=== PATIENT | female | born 1970 | race Asian ===

== ENCOUNTER 2017-04-08 11:50 | Emergency (ER) | payer OTHER ==
[~2017-04-08] VITALS: Ht 165.1 cm; Wt 65.0 kg
[~2017-04-08 11:50] MED LIST: AMLO-147 PO; ASPI81TA3 PO; CHOL100062 PO; CIPR500T4 PO; ERGO500014 PO; GABA100C14 PO; GLIP5TAB13 PO; HYDR-762 PO; LISI10TA2 PO; METF500T4 PO; METO-448 PO; METO25TA4 PO; OMEP40CA6 PO
[2017-04-08 11:53] VITALS: Ht 165.1 cm; Wt 65.0 kg
--- NOTE | 2017-04-08 12:33 | ERD ---
ER Documentation Chief Complaint Date/Time DATE: 04/08/17 TIME: 12:22 Chief Complaint Complains of urine problem HPI 46-year-old female who presented emergency department for urinary symptoms. Patient stated that she has painful urination, fever of 100.0 at home, bilateral flank pain (right greater than the left). Stated that she was diagnosed with kidney infection about a year ago and was advised by her primary care physician never to do fasting. But patient stated that she just fasted for about 17 hours and after this she developed her symptoms. Denies headache, loss of consciousness, dizziness, blurry vision, changes in vision, photophobia, facial pain, ear pain, throat pain, difficulty swallowing, neck pain, shoulder pain, chest pain, cough, hemoptysis, abdominal pain, loss of appetite, nausea, vomiting, hematochezia, diarrhea, constipation, , the possibility of being , bladder and bowel incontinences, extremity weakness, extremity tenderness, numbness or tingling sensation, difficulty walking, recent travel, recent exposure to illness, recent antibiotic use in the last 3 months. Allergy: No known drug allergies. PMH: Diabetes, hypertension. Family medical history: Denies family history of cardiac before the age of 50. AO LMP: April 01, 2017. Medications: Glipizide, Tylenol, metoprolol, Pepcid, lisinopril, metformin. Surgery: Denies. Primary Social History: Not working at this time. Denies smoking, use of alcohol, use of illegal drugs. ROS All systems reviewed and are negative except as per history of present illness. Medications Home Meds Active Scripts Phenazopyridine Hcl* (Pyridium*) 200 Mg Tab, 200 MG PO TID Y for URINARY PAIN, # 6 TAB Prov:COLLEEN HINKLE F 04/08/17 Ondansetron (Ondansetron Odt) 4 Mg Tab.rapdis, 4 MG PO Q6H Y for NAUSEA AND/OR VOMITING, #15 TAB Prov:PASILABANEVANGELISTAR F 04/08/17 Acetaminophen* (Tylophen*) 500 Mg Capsule, 1 CAP PO Q6H Y for PAIN AND OR ELEVATED TEMP, #20 CAP Prov:PASILABAN,EVANGELISTAR F 04/08/17 Ciprofloxacin Hcl* (Ciprofloxacin Hcl*) 500 Mg Tablet, 500 MG PO BID, #14 TAB Prov:ESTEBAN LANDRY V. CRIBBER 06/28/16 Amlodipine Besylate* (Amlodipine Besylate*) 10 Mg Tablet, 10 MG PO DAILY, #30 TAB Prov:ESTEBAN LANDRY VVannesa CRIBBER 06/24/16 Hydrocodone Bit-Acetaminophen* ([place]*) 10-325 Mg Tablet, 1 TAB PO Q6 Y for PAIN , #20 TAB Prov:DALIA CARTER 06/20/16 Reported Medications Glipizide* (Glipizide*) 5 Mg Tablet, 5 MG PO AC BREAKFAST DINNER, TAB 01/31/17 Metoprolol Tartrate* (Lopressor*) 25 Mg Tab, 25 MG PO BID, #60 TAB 01/31/17 Gabapentin* (Gabapentin*) 100 Mg Capsule, 100 MG PO TID, #90 CAP 01/31/17 Lisinopril* (Lisinopril*) 10 Mg Tablet, 10 MG PO DAILY, #30 TAB 01/31/17 Cholecalciferol* (Vitamin D3*) 1,000 Unit Tablet, 1000 UNIT PO DAILY, TAB 01/31/17 Omeprazole* (Omeprazole*) 40 Mg Capsule.dr, 40 MG PO DAILY, #30 CAP 06/20/16 Glipizide* (Glipizide*) 5 Mg Tablet, 5 MG PO BID, TAB 06/20/16 Gabapentin* (Gabapentin*) 100 Mg Capsule, 100 MG PO TID, #90 CAP 06/20/16 Aspirin* (Aspirin* Chew) 81 Mg Tab.chew, 81 MG PO DAILY, TAB.CHEW 06/20/16 Metoprolol Tartrate* (Lopressor*) 25 Mg Tablet, 25 MG PO BID, #60 TAB 06/20/16 Metformin* (Glucophage*) 500 Mg Tab, 500 MG PO WITH LUNCH DINNER, #60 TAB 06/20/16 Ergocalciferol* (Drisdol* (Vitamin D2)) 50,000 Unit Capsule, 06706 UNIT PO Q7D, CAP 06/20/16 Allergies Allergies: Coded Allergies: No Known Allergy (Unverified , 06/25/16) PMhx/Soc History of Surgery: No Anesthesia Reaction: No Hx Neurological Disorder: No Hx Respiratory Disorders: No Hx Cardiac Disorders: Yes (HTN) Hx Psychiatric Problems: No Hx Miscellaneous Medical Probl: Yes (DM) Hx Alcohol Use: No Hx Substance Use: No Hx Tobacco Use: No Smoking Status: Never smoker Physical Exam Vitals Vital Signs Date Time Temp Pulse Resp B/P Pulse Ox O2 Delivery O2 Flow Rate FiO2 04/08/17 11:53 98.4 86 20 172/89 97 Physical Exam CONSTITUTIONAL: Well-appearing; well-nourished; in no apparent distress. HEAD: Normocephalic; atraumatic. EYES: Conjunctiva clear, sclera non-icteric, EOM intact. PERRL Ears: Hearing intact. EACs clear, TMs non-bulging, non-inflamed, translucent & mobile, ossicles normal appearance, No obstructions, no erythema, no discharges Nose: No obstructions. No polyps. No external lesions. Mucosa non-inflamed. No external lesions, septum and turbinates normal. No rhinorrhea. No discharges. Frontal sinus is non-tender to palpation. Maxillary sinus is non-tender to palpation. MOUTH: Moist mucous membranes, no lesion, no obstructions, no vesicles, no thrush, patent airway Throat: Uvula in midline. Right tonsil is +1 with no erythema, no exudate. Left tonsil is +1 with no erythema, no exudate. Tolerating secretions well. Good gag reflex. Patent airway. Neck: Supple, without lesions, bruits, or adenopathy. No mass. Thyroid non- enlarged and non-tender to palpation. CHEST: Symmetrical chest. Respirations even and not labored. No retractions noted. CARDIOVASCULAR: Normal S1, S2. RRR. No murmurs, gallops. RESPIRATORY: Normal chest excursion with respiration; breath sounds clear and equal bilaterally; no wheezes, rhonchi, or rales. Breathing even and unlabored. Speaking in clear, full, and complete sentences w/ ease. ABDOMEN: Normal bowel sounds normal. Soft, round, non-distended, non-guarding, no tenderness, no rebound, no organomegaly, no masses, no pulsating abdominal mass. No hernia. No peritoneal signs. : Bilateral CVA tenderness, right greater than the left. BACK: Symmetrical shoulder. Spine is midline without deformity, tenderness. No evidence of trauma or deformity. PELVIS: Stable pelvis. No evidence of trauma or deformity. MUSCULOSKELETAL: Normal gait and station. No misalignment, asymmetry, crepitation, defects, tenderness, masses, effusions, decreased range of motion, instability, atrophy or abnormal strength or tone in the head, neck, spine, ribs , pelvis or extremities. Negative on straight leg test bilaterally. No calf tenderness. NEUROVASCULAR: Distal pulses are present. Pedal pulse are present, equal, and normal. Capillary refills are < 2 seconds. NEUROLOGIC: Alert and oriented x4. Speaks full and clear sentences. Cranial Nerves II-XII normal. Sensation to pain, touch, and proprioception normal. Grossly unremarkable. No neurologic deficits. Romberg test is negative. PSYCHOLOGICAL: The patients mood and manner are appropriate. No hallucinations , delusions. Not SI. Not HI. Has the capacity to decide for self SKIN: Normal for age and ethnicity; warm; dry; good turgor; no apparent lesions or exudates. No rashes, hives, discoloration. Intact. Result Diagram: 04/08/17 1235 04/08/17 1235 Results 24 hrs Laboratory Tests Test 04/08/17 12:30 04/08/17 12:35 Urine Color LT. YELLOW Urine Clarity CLEAR Urine pH 5.0 Urine Specific [place] 1.020 Urine Ketones NEGATIVE Urine Nitrite NEGATIVE Urine Bilirubin NEGATIVE Urine Urobilinogen 0.2 E.U./dL Urine Leukocyte Esterase NEGATIVE Urine Hemoglobin NEGATIVE Urine Glucose 0.25%% Urine Total Protein NEGATIVE Urine Test NEGATIVE White Blood Count 8.610^3/ul Red Blood Count 4.4510^6/ul Hemoglobin 11.7g/dl Hematocrit 37.1% Mean Corpuscular Volume 83.4fl Mean Corpuscular Hemoglobin 26.3pg Mean Corpuscular Hemoglobin Concent 31.5g/dl Red Cell Distribution Width 14.1% Platelet Count 84588^3/UL Mean Platelet Volume 11.1fl Neutrophils % 70.6% Lymphocytes % 23.5% Monocytes % 3.8% Eosinophils % 1.3% Basophils % 0.5% Nucleated Red Blood Cells % 0.0/100WBC Neutrophils # 6.110^3/ul Lymphocytes # 2.010^3/ul Monocytes # 0.310^3/ul Eosinophils # 0.110^3/ul Basophils # 0.010^3/ul Nucleated Red Blood Cells # 0.010^3/ul Sodium Level 142mmol/L Potassium Level 3.8mmol/L Chloride Level 105mmol/L Carbon Dioxide Level 24mmol/L Anion Gap 17 Blood Urea Nitrogen 16mg/dl Creatinine 0.96mg/dl Glucose Level 188mg/dl Calcium Level 9.2mg/dl Total Bilirubin 0.2mg/dl Direct Bilirubin 0.00mg/dl Indirect Bilirubin 0.2mg/dl Aspartate Amino Transf (AST/SGOT) 19IU/L Alanine Aminotransferase (ALT/SGPT) 27IU/L Alkaline Phosphatase 54IU/L Total Protein 7.6g/dl Albumin 4.0g/dl Globulin 3.60g/dl Albumin/Globulin Ratio 1.11 Procedures/MDM Examination: Please see physical examination. Disease process, medical treatment was explained to the patient and family member. They verbalized understanding and agreed with the diagnostic tests, medical treatment, and follow-up care. 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 No evidence of bowel obstruction or inflammation. There is no appendicitis. There is mildly fecal filled colon. Blood works: Reviewed. HCG urine: Negative. Urinalysis: Reviewed. Culture urine: Awaiting for results. Treatment: Tylenol. Re-evaluation: Denies headache, dizziness, blurry vision, neck pain, shoulder pain, chest pain, active bleeding. Able to tolerate 30 cc of water by mouth. No episode of vomiting here in the emergency department. There is no right upper/right lower/epigastric/left upper/left lower abdominal tenderness and light and deep palpation. Negative on Rovsing's sign. Negative on Drea sign. No peritoneal signs. No neurovascular deficits. No neurological deficits. Consultation: None. Differential diagnosis: Nephrolithiasis versus pyelonephritis versus urinary tract infection versus low back strain versus low back pain Medical decision makin-year-old female who presented emergency department for urinary symptoms. Patient stated that she has painful urination, fever of 100.0 at home, bilateral flank pain (right greater than the left). Stated that she was diagnosed with kidney infection about a year ago and was advised by her primary care physician never to do fasting. But patient stated that she just fasted for about 17 hours and after this she developed her symptoms. Patient's complaint, patient's history about her complaint, my physical findings, diagnostic test results, my reevaluation are consistent my final diagnosis of flank pain, dysuria and constipation Medications prescribed are the following: Pyridium. Tylenol. Zofran. Colace. Patient and family member are made aware of the side effects and adverse reactions of the medications prescribed. Instructed on when to seek emergent and medical attention in case allergic/anaphylactic reactions or severe side effects and or adverse reactions to medications. Patient and family member verbalized understanding. Patient instructed Instructed to follow-up with his PCP in 24-48 hours. Instructed to Call 911 for chest pain, shortness of breath. Advised to come back here in ED as soon as possible for severity of symptoms which includes but not limited to: any new symptoms; shortness of breath/difficulty of breathing; cardiovascular changes; severe gastrointestinal symptoms; signs and symptoms of bleeding and or infection; signs of compartment syndrome/neurovascular changes; neurological changes/deficits. Patient and family member verbalized understanding. Upon discharge, patient is alert and oriented x 4, speaks full and clear sentences, denies pain, has no neurological deficits, has no neurovascular deficits, difficulty of breathing. Breathing even and unlabored. Lung sounds are clear to auscultation. Not in distress. Appears comfortable. Ambulatory with steady gait. Appears satisfied with care provided here in ED. Departure Diagnosis: Primary Impression: Other urinary problems Additional Impression: Dysuria Condition: Good Additional Instructions: Patient instructed Instructed to follow-up with his PCP in 24-48 hours. Instructed to Call 911 for chest pain, shortness of breath. Advised to come back here in ED as soon as possible for severity of symptoms which includes but not limited to: any new symptoms; shortness of breath/difficulty of breathing; cardiovascular changes; severe gastrointestinal symptoms; signs and symptoms of bleeding and or infection; signs of compartment syndrome/neurovascular changes; neurological changes/deficits. Patient and family member verbalized understanding. COLLEEN HINKLE April 08, 2017 12:33
[2017-04-08 12:44] LABS: ADD SCAN DIFF NO
[2017-04-08 12:53] LABS: BASOPHILS % 0.5 % (0.0-2.0); EOSINOPHILS # 0.1 10^3/ul (0.0-0.5); EOSINOPHILS % 1.3 % (0.0-7.0); HEMATOCRIT 37.1 % (37.0-47.0); HEMOGLOBIN 11.7 g/dl (12.0-16.0); LYMPHOCYTES % 23.5 % (15.0-51.0); MEAN CORPUSCULAR HEMOGLOBIN 26.3 pg (29.0-33.0); MEAN CORPUSCULAR HGB CONC 31.5 g/dl (32.0-37.0); MEAN CORPUSCULAR VOLUME 83.4 fl (82.0-101.0); MEAN PLATELET VOLUME 11.1 fl (7.4-10.4); MONOCYTE # 0.3 10^3/ul (0.3-0.9); MONOCYTES % 3.8 % (0.0-11.0); NEUTROPHIL # 6.1 10^3/ul (1.6-7.5); NEUTROPHILS % 70.6 % (39.0-77.0); PLATELET COUNT 326 10^3/UL (140-415); RED BLOOD COUNT 4.45 10^6/ul (4.20-5.40); RED CELL DISTRIBUTION WIDTH 14.1 % (11.5-14.5); WHITE BLOOD COUNT 8.6 10^3/ul (4.8-10.8)
[2017-04-08 12:57] LABS: ADD UMIC NO; URINE BILIRUBIN (Dip) NEGATIVE (NEGATIVE); URINE BLOOD (Dip) NEGATIVE (NEGATIVE); URINE COLOR LT. YELLOW (YELLOW); URINE KETONES (Dip) NEGATIVE (NEGATIVE); URINE LEUKOCYTE ESTERASE (Dip) NEGATIVE (NEGATIVE); URINE NITRITE (Dip) NEGATIVE (NEGATIVE); URINE TOTAL PROTEIN (Dip) NEGATIVE (NEGATIVE); URINE UROBILINOGEN (Dip) 0.2 E.U./dL (0.1-1.0)
[2017-04-08 13:06] LABS: ALBUMIN/GLOBULIN RATIO 1.11; BILIRUBIN,INDIRECT 0.2 mg/dl (0-1.1); BILIRUBIN,TOTAL 0.2 mg/dl (0.2-1.3); CALCIUM 9.2 mg/dl (8.4-10.2); CREATININE 0.96 mg/dl (0.44-1.00); POTASSIUM 3.8 mmol/L (3.5-5.1); TOTAL PROTEIN 7.6 g/dl (6.1-8.1)
--- NOTE | 2017-04-08 14:51 | RADRPT ---
PROCEDURE: CT abdomen and pelvis without contrast. CLINICAL INDICATION: Abdominal pain. TECHNIQUE: CT scan of the abdomen and pelvis without contrast was performed on a multi-slice CT [facility] . Sagittal and coronal reformatted images were obtained from the axial source images. One or more of the following dose reduction techniques were used: - Automated exposure control. - Adjustment of the mA and/or kV according to patient size. - Use of iterative reconstruction technique. DLP 545.6 mGycm. CTDIvol 9.7 mGy COMPARISON: 06/22/2016 FINDINGS: The lung bases are clear. There is limited evaluation of the solid viscera from the lack of IV con trast. There is a horseshoe configuration of the kidneys without evidence of hydronephrosis or visible isai nephric fat stranding. No renal or visible ureteral calculi are present. There is normal density of the liver with no gross focal lesion or biliary ductal dilatation. The gallbladder is unremarkable without inflammation. The spleen is unremarkable without mass. The adrenal glands are within normal limits without mass. The pancreas is unremarkable without focal lesion or surrounding inflammatory changes. There is no bowel obstruction or focal bowel inflammation. The appendix is unremarkable. There is a mildly fecal filled colon. There is no free air or free fluid. There are no enlarged lymph nodes. The aorta is unremarkable and there is no acute osseous abnormality. Degenerative facet and endplate changes are present within the lumbar spine. The uterus and adnexal structures are grossly unremarkable. 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 No evidence of bowel obstruction or inflammation. There is no appendicitis. There is a mildly feca l filled colon. RPTAT: AA .Anna Shetty MD, MD Date Time Electronically viewed and signed by .Anna Shetty MD, MD on 04/08/2017 14:51 .J/
[2017-04-08] MEDS ORDERED: ONDA4TAB14 PO (15:44)
[2017-04-08] MEDS ORDERED: ACET500C5 PO (15:44)
[2017-04-08] MEDS ORDERED: PHEN-538 PO (15:44)
[2017-04-08] MEDS ORDERED: DOCU-144 PO (15:46)
== END 2017-04-08 16:00 | disposition home or self-care (01) ==
LOC: FTE 11:50
DX: R30.0 Dysuria (principal); I10 Essential (primary) hypertension; E11.9 Type 2 diabetes mellitus without complications; R10.2 Pelvic and perineal pain; Z79.82 Long term (current) use of aspirin; Z79.84 Long term (current) use of oral hypoglycemic drugs
CPT/HCPCS: 74176; 80053; 81003; 84703; 85025; 87086; Z7502

== ENCOUNTER 2017-07-04 17:02 | Emergency (ER) | payer OTHER ==
[~2017-07-04] VITALS: Ht 157.5 cm; Wt 66.0 kg
[~2017-07-04 17:02] MED LIST changes: +ACET500C5 PO; +DOCU-144 PO; +ONDA4TAB14 PO; +PHEN-538 PO
[2017-07-04 17:04] VITALS: Ht 157.5 cm; Wt 66.0 kg
[2017-07-04] MEDS ORDERED: KETOROLAC 30 MG INJ IM STA (19:07)
[2017-07-04 19:25] LABS: URINE BLOOD (Dip) POC Negative (NEGATIVE)
[2017-07-04] MEDS ORDERED: NAPR-260 PO (19:41)
[2017-07-04] MEDS ORDERED: CIPR500T4 PO (19:41)
--- NOTE | 2017-07-05 00:30 | ERD ---
ER Documentation Chief Complaint Date/Time DATE: 07/05/17 TIME: 00:25 Chief Complaint BACK PAIN RADIATING TO LOWER ABD X 1 WEEK HPI This patient is a 46-year-old female with past medical history of pyelonephritis and urinary tract infection presenting to the emergency department with complaints of suprapubic pain bilaterally radiating to the back bilaterally. She also reports pain with urination and burning. Symptoms have been constant and worsening for 7 days. Patient denies vaginal bleeding, discharge, fevers, chills, or other symptoms currently. ROS All systems reviewed and are negative except as per history of present illness. Medications Home Meds Active Scripts Naproxen* (Naprosyn*) 500 Mg Tablet, 500 MG PO BID Y for PAIN AND/OR INFLAMMATION, #30 TAB Prov:DALIA BRIGGS PA-C 07/04/17 Ciprofloxacin Hcl* (Ciprofloxacin Hcl*) 500 Mg Tablet, 500 MG PO BID for 7 Days , #14 TAB Prov:DALIA BRIGGS PA-C 07/04/17 Docusate Sodium* (Colace*) 100 Mg Capsule, 100 MG PO DAILY Y for constipation, # 30 CAP Prov:PASILABANCOLLEEN F 04/08/17 Phenazopyridine Hcl* (Pyridium*) 200 Mg Tab, 200 MG PO TID Y for URINARY PAIN, # 6 TAB Prov:COLLEEN HINKLE F 04/08/17 Ondansetron (Ondansetron Odt) 4 Mg Tab.rapdis, 4 MG PO Q6H Y for NAUSEA AND/OR VOMITING, #15 TAB Prov:JADEILACOLLEEN LAN F 04/08/17 Acetaminophen* (Tylophen*) 500 Mg Capsule, 1 CAP PO Q6H Y for PAIN AND OR ELEVATED TEMP, #20 CAP Prov:PASILABANEVANGELISTAR F 04/08/17 Ciprofloxacin Hcl* (Ciprofloxacin Hcl*) 500 Mg Tablet, 500 MG PO BID, #14 TAB Prov:ESTEBAN LANDRY V. WET TRIMMER 06/28/16 Amlodipine Besylate* (Amlodipine Besylate*) 10 Mg Tablet, 10 MG PO DAILY, #30 TAB Prov:LANDRYESTEBAN V. WET TRIMMER 06/24/16 Hydrocodone Bit-Acetaminophen* ([place]*) 10-325 Mg Tablet, 1 TAB PO Q6 Y for PAIN , #20 TAB Prov:DALIA CARTER 06/20/16 Reported Medications Glipizide* (Glipizide*) 5 Mg Tablet, 5 MG PO AC BREAKFAST DINNER, TAB 01/31/17 Metoprolol Tartrate* (Lopressor*) 25 Mg Tab, 25 MG PO BID, #60 TAB 01/31/17 Gabapentin* (Gabapentin*) 100 Mg Capsule, 100 MG PO TID, #90 CAP 01/31/17 Lisinopril* (Lisinopril*) 10 Mg Tablet, 10 MG PO DAILY, #30 TAB 01/31/17 Cholecalciferol* (Vitamin D3*) 1,000 Unit Tablet, 1000 UNIT PO DAILY, TAB 01/31/17 Omeprazole* (Omeprazole*) 40 Mg Capsule.dr, 40 MG PO DAILY, #30 CAP 06/20/16 Glipizide* (Glipizide*) 5 Mg Tablet, 5 MG PO BID, TAB 06/20/16 Gabapentin* (Gabapentin*) 100 Mg Capsule, 100 MG PO TID, #90 CAP 06/20/16 Aspirin* (Aspirin* Chew) 81 Mg Tab.chew, 81 MG PO DAILY, TAB.CHEW 06/20/16 Metoprolol Tartrate* (Lopressor*) 25 Mg Tablet, 25 MG PO BID, #60 TAB 06/20/16 Metformin* (Glucophage*) 500 Mg Tab, 500 MG PO WITH LUNCH DINNER, #60 TAB 06/20/16 Ergocalciferol* (Drisdol* (Vitamin D2)) 50,000 Unit Capsule, 52146 UNIT PO Q7D, CAP 06/20/16 Allergies Allergies: Coded Allergies: No Known Allergy (Unverified , 06/25/16) PMhx/Soc Medical and Surgical Hx: pt denies Surgical Hx History of Surgery: No Anesthesia Reaction: No Hx Neurological Disorder: No Hx Respiratory Disorders: No Hx Cardiac Disorders: Yes (HTN) Hx Psychiatric Problems: No Hx Miscellaneous Medical Probl: Yes (DM) Hx Alcohol Use: No Hx Substance Use: No Hx Tobacco Use: No Smoking Status: Never smoker Physical Exam Vitals Vital Signs Date Time Temp Pulse Resp B/P Pulse Ox O2 Delivery O2 Flow Rate FiO2 07/04/17 17:04 98.5 69 18 176/84 99 Physical Exam Const: Nontoxic, well-appearing female in no acute distress. Head: Atraumatic Eyes: Normal Conjunctiva ENT: Normal External Ears, Nose and Mouth. Neck: Full range of motion..~ No meningismus. Resp: Clear to auscultation bilaterally Cardio: Regular rate and rhythm, no murmurs Abd: Soft, non tender, non distended. Normal bowel sounds. Mild subjective suprapubic tenderness bilaterally but no rebound tenderness or guarding. No McBurney's point tenderness. Skin: No petechiae or rashes Back: No midline or flank tenderness. No CVA tenderness. Ext: No cyanosis, or edema Neur: Awake and alert Psych: Normal Mood and Affect Results 24 hrs Laboratory Tests Test 07/04/17 19:30 Bedside Urine pH (LAB) 6.0 Bedside Urine Protein (LAB) Negative Bedside Urine Glucose (UA) Negative Bedside Urine Ketones (LAB) Negative Bedside Urine Blood Negative Bedside Urine Nitrite (LAB) Negative Bedside Urine Leukocyte Esterase (L Negative Current Medications Medications (Trade) Dose Ordered Sig/Di Route PRN Reason Start Time Stop Time Status Last Admin Dose Admin Ketorolac Tromethamine (Toradol) 30 mg ONCE STAT IM 07/04/17 19:07 07/04/17 19:08 DC 07/04/17 19:24 Procedures/MDM 46-year-old female presents to the emergency department with complaints of urinary symptoms. Physical examination shows some mild suprapubic tenderness subjectively but not significant. There is no physical examination findings concerning for acute abdomen. Urine dip was negative in the department, however given the patient's significant history of pyelonephritis and urinary tract infection, I will treat her empirically with ciprofloxacin twice daily for 7 days. The patient is to have close follow-up with her primary care physician. The patient is to return immediately for any new or worsening symptoms. The patient agreed with the discharge plan and diagnosis. Questions and concerns were addressed. Departure Diagnosis: Primary Impression: Dysuria Condition: Fair Patient Instructions: Dysuria Additional Instructions: Follow up with your PCP within the next 1-3 days for a repeat evaluation. If you require a referral to a specialist, your Primary Care Provider may be able to provide this for you. In most patient cases, a referral is not required. If you have further questions regarding this matter, please ask your Primary Care Provider. Return the the emergency department immediately if symptoms worsen or change. If you have any questions regarding medications, ask your pharmacist or us before you leave. If any adverse reactions, occur while taking your medications, discontinue the treatment and return to the emergency department immediately. If any new or worsening symptoms, uncontrolled fevers, or other unexplained symptoms occur, return to the emergency department immediately. Take your medications as directed, and complete the entire course of treatment. DALIA BRIGGS PA-C Jul 05, 2017 00:25
== END 2017-07-04 19:48 | disposition home or self-care (01) ==
LOC: FTE 17:02
DX: R30.0 Dysuria (principal); I10 Essential (primary) hypertension; E11.9 Type 2 diabetes mellitus without complications; Z79.82 Long term (current) use of aspirin; Z79.84 Long term (current) use of oral hypoglycemic drugs
CPT/HCPCS: 81003; 87086; 96372; J1885; Z7502

== ENCOUNTER 2017-10-13 13:29 | Inpatient (IN) | payer OTHER ==
[~2017-10-13] VITALS: Ht 165.1 cm; Wt 65.5 kg
[~2017-10-13 13:29] MED LIST changes: +NAPR-260 PO
[2017-10-13 13:31] VITALS: Ht 165.1 cm; Wt 65.5 kg
[2017-10-13] MEDS ORDERED: ASPIRIN 325 MG TAB PO STA (14:08)
[2017-10-13] MEDS ORDERED: NITROGLYCERIN 2% 1 GM OINT PKT TD STA (14:08)
[2017-10-13] MEDS ORDERED: METO-429 PO (14:32)
[2017-10-13] MEDS ORDERED: CHOL200078 PO (14:33)
[2017-10-13 14:36] LABS: BASOPHIL # 0.1 10^3/ul (0.0-0.1); BASOPHILS % 0.5 % (0.0-2.0); EOSINOPHILS # 0.2 10^3/ul (0.0-0.5); EOSINOPHILS % 1.6 % (0.0-7.0); HEMATOCRIT 36.9 % (37.0-47.0); HEMOGLOBIN 11.7 g/dl (12.0-16.0); LYMPHOCYTES # 2.6 10^3/ul (0.8-2.9); LYMPHOCYTES % 23.9 % (15.0-51.0); MEAN CORPUSCULAR HEMOGLOBIN 25.4 pg (29.0-33.0); MEAN CORPUSCULAR HGB CONC 31.7 g/dl (32.0-37.0); MEAN PLATELET VOLUME 11.8 fl (7.4-10.4); MONOCYTE # 0.6 10^3/ul (0.3-0.9); MONOCYTES % 5.3 % (0.0-11.0); NEUTROPHIL # 7.5 10^3/ul (1.6-7.5); NEUTROPHILS % 68.4 % (39.0-77.0); PLATELET COUNT 276 10^3/UL (140-415); RED BLOOD COUNT 4.61 10^6/ul (4.20-5.40)
[2017-10-13 15:01] LABS: ANION GAP 16 (8-16); BLOOD UREA NITROGEN 14 mg/dl (7-20); CALCIUM 9.9 mg/dl (8.4-10.2); CARBON DIOXIDE 27 mmol/L (21-31); CHLORIDE 104 mmol/L (97-110); CREATININE 0.91 mg/dl (0.44-1.00); GLUCOSE 190 mg/dl (70-220); POTASSIUM 4.2 mmol/L (3.5-5.1); SODIUM 143 mmol/L (135-144)
[2017-10-13 15:21] LABS: TROPONIN-I < 0.012 ng/ml (0.00-0.12)
--- NOTE | 2017-10-13 15:24 | RADRPT ---
PROCEDURE: XR Chest. CLINICAL INDICATION: Chest pain. TECHNIQUE: Chest x-ray, single view. COMPARISON: 06/25/2016. FINDINGS: The cardiac silhouette is slightly magnified. There is no focal pulmonary parenchymal opacification or evidence of pleural effusion. Skeletal structures and upper abdomen are unremarkable. IMPRESSION: No radiographic evidence of acute cardiopulmonary pathology. RPTAT: QQ .Shanna Thompson MD, MD Date Time Electronically viewed and signed by .Shanna Thompson MD, on 10/13/2017 15:24 .T/
--- NOTE | 2017-10-13 17:34 | ERD ---
ER Documentation Chief Complaint Chief Complaint constant mid chest pain and right side headache started 5 days ago HPI This is a 46-year-old female with diabetes hypertension high cholesterol who is complaining of 3 days of substernal chest pressure. Short breath but no palpitations dizziness syncope. There is no radiation of pain. The pain can occur at rest or with exertion. Patient has no prior cardiac history or workup. ROS All systems reviewed and are negative except as per history of present illness. Medications Home Meds Reported Medications Cholecalciferol (Vitamin D3) (Vitamin D3) 2,000 Unit Tab.chew, 2000 UNIT PO DAILY, TAB.CHEW 10/13/17 Metoprolol Tartrate* (Lopressor*) 50 Mg Tab, 50 MG PO BID, #60 TAB 10/13/17 Lisinopril* (Lisinopril*) 10 Mg Tablet, 10 MG PO DAILY, #30 TAB 01/31/17 Omeprazole* (Omeprazole*) 40 Mg Capsule.dr, 40 MG PO DAILY, #30 CAP 06/20/16 Glipizide* (Glipizide*) 5 Mg Tablet, 5 MG PO BID, TAB 06/20/16 Gabapentin* (Gabapentin*) 100 Mg Capsule, 100 MG PO TID, #90 CAP 06/20/16 Discontinued Reported Medications Glipizide* (Glipizide*) 5 Mg Tablet, 5 MG PO AC BREAKFAST DINNER, TAB 01/31/17 Metoprolol Tartrate* (Lopressor*) 25 Mg Tab, 25 MG PO BID, #60 TAB 01/31/17 Gabapentin* (Gabapentin*) 100 Mg Capsule, 100 MG PO TID, #90 CAP 01/31/17 Cholecalciferol* (Vitamin D3*) 1,000 Unit Tablet, 1000 UNIT PO DAILY, TAB 01/31/17 Aspirin* (Aspirin* Chew) 81 Mg Tab.chew, 81 MG PO DAILY, TAB.CHEW 06/20/16 Metoprolol Tartrate* (Lopressor*) 25 Mg Tablet, 25 MG PO BID, #60 TAB 06/20/16 Metformin* (Glucophage*) 500 Mg Tab, 500 MG PO WITH LUNCH DINNER, #60 TAB 06/20/16 Ergocalciferol* (Drisdol* (Vitamin D2)) 50,000 Unit Capsule, 80272 UNIT PO Q7D, CAP 06/20/16 Discontinued Scripts Naproxen* (Naprosyn*) 500 Mg Tablet, 500 MG PO BID Y for PAIN AND/OR INFLAMMATION, #30 TAB Prov:DALIA BRIGGS PA-C 07/04/17 Ciprofloxacin Hcl* (Ciprofloxacin Hcl*) 500 Mg Tablet, 500 MG PO BID for 7 Days , #14 TAB Prov:DALIA BRIGGS PA-C 07/04/17 Docusate Sodium* (Colace*) 100 Mg Capsule, 100 MG PO DAILY Y for constipation, # 30 CAP Prov:PASILARIKYCOLLEEN F 04/08/17 Phenazopyridine Hcl* (Pyridium*) 200 Mg Tab, 200 MG PO TID Y for URINARY PAIN, # 6 TAB Prov:GEOVANIRIKYCOLLEEN 04/08/17 Ondansetron (Ondansetron Odt) 4 Mg Tab.rapdis, 4 MG PO Q6H Y for NAUSEA AND/OR VOMITING, #15 TAB Prov:JADEILARIKYCOLLEEN F 04/08/17 Acetaminophen* (Tylophen*) 500 Mg Capsule, 1 CAP PO Q6H Y for PAIN AND OR ELEVATED TEMP, #20 CAP Prov:PASILABANCOLLEEN F 04/08/17 Ciprofloxacin Hcl* (Ciprofloxacin Hcl*) 500 Mg Tablet, 500 MG PO BID, #14 TAB Prov:ESTEBAN LANDRY V. [employer] SURVEILLANCE OPERATOR 06/28/16 Amlodipine Besylate* (Amlodipine Besylate*) 10 Mg Tablet, 10 MG PO DAILY, #30 TAB Prov:LANDRYESTEBAN VVannesa AIR SURVEILLANCE OPERATOR 06/24/16 Hydrocodone Bit-Acetaminophen* (Tunas*) 10-325 Mg Tablet, 1 TAB PO Q6 Y for PAIN , #20 TAB Prov:DALIA CARTER 06/20/16 Allergies Allergies: Coded Allergies: No Known Allergy (Unverified , 10/13/17) PMhx/Soc History of Surgery: No Anesthesia Reaction: No Hx Neurological Disorder: No Hx Respiratory Disorders: No Hx Cardiac Disorders: Yes (HTN) Hx Psychiatric Problems: No Hx Miscellaneous Medical Probl: Yes (DM) Hx Alcohol Use: No Hx Substance Use: No Hx Tobacco Use: No Smoking Status: Never smoker FmHx Family History: No coronary disease Physical Exam Vitals Vital Signs Date Time Temp Pulse Resp B/P Pulse Ox O2 Delivery O2 Flow Rate FiO2 10/13/17 14:50 95 18 181/91 98 Nasal Cannula 2.0 10/13/17 14:17 Nasal Cannula 10/13/17 13:31 98.7 77 16 177/86 98 Physical Exam Const: Well-developed, well-nourished Head: Atraumatic, normocephalic Eyes: Normal Conjunctiva, PERRLA, EOMI, normal sclera, no nystagmus ENT: Normal External Ears, Nose and Mouth, moist mucus membranes. Neck: Full range of motion. No meningismus, no lymphadenopathy. Resp: Clear to auscultation bilaterally, no wheezing, rhonchi, rales Cardio: Regular rate and rhythm, no murmurs, S1 S2 present Abd: Soft, non tender x 4, non distended. Normal bowel sounds, no guarding or rebound, no pulsitile abdominal masses or bruits Skin: No petechiae or rashes, no ecchymosis , no maculopapular rash Back: No midline or flank tenderness Ext: No cyanosis, or edema, FROM x 4, normal inspection, neurovascularly intact x 4 Neur: Awake and alert, STR 5/5 x 4, sensation intact x 4, no focal findings, cerebellum intact Psych: Normal Mood and Affect Result Diagram: 10/13/17 1420 10/13/17 1420 Results 24 hrs Laboratory Tests Test 10/13/17 14:20 White Blood Count 11.010^3/ul Red Blood Count 4.6110^6/ul Hemoglobin 11.7g/dl Hematocrit 36.9% Mean Corpuscular Volume 80.0fl Mean Corpuscular Hemoglobin 25.4pg Mean Corpuscular Hemoglobin Concent 31.7g/dl Red Cell Distribution Width 14.0% Platelet Count 48821^3/UL Mean Platelet Volume 11.8fl Neutrophils % 68.4% Lymphocytes % 23.9% Monocytes % 5.3% Eosinophils % 1.6% Basophils % 0.5% Nucleated Red Blood Cells % 0.0/100WBC Neutrophils # 7.510^3/ul Lymphocytes # 2.610^3/ul Monocytes # 0.610^3/ul Eosinophils # 0.210^3/ul Basophils # 0.110^3/ul Nucleated Red Blood Cells # 0.010^3/ul Sodium Level 143mmol/L Potassium Level 4.2mmol/L Chloride Level 104mmol/L Carbon Dioxide Level 27mmol/L Anion Gap 16 Blood Urea Nitrogen 14mg/dl Creatinine 0.91mg/dl Glucose Level 190mg/dl Calcium Level 9.9mg/dl Troponin I < 0.012ng/ml Current Medications Medications (Trade) Dose Ordered Sig/Di Route PRN Reason Start Time Stop Time Status Last Admin Dose Admin Aspirin (Aspirin) 325 mg ONCE STAT PO 10/13/17 14:08 10/13/17 14:10 DC 10/13/17 14:36 Nitroglycerin (Nitroglycerin 2% Oint) 1 inch ONCE STAT TD 10/13/17 14:08 10/13/17 14:10 DC 10/13/17 14:36 Procedures/MDM EKG: Rate/Rhythm: Normal Sinus Rhythm,NL intervals QRS, ST, QT: NORMAL DE, QRS, QT] Impression: NORMAL EKG PROCEDURE: XR Chest. CLINICAL INDICATION: Chest pain. TECHNIQUE: Chest x-ray, single view. COMPARISON: 06/25/2016. FINDINGS: The cardiac silhouette is slightly magnified. There is no focal pulmonary parenchymal opacification or evidence of pleural effusion. Skeletal structures and upper abdomen are unremarkable. IMPRESSION: No radiographic evidence of acute cardiopulmonary pathology. RPTAT: QQ .Shanna Thompson MD, MD Date Time Electronically viewed and signed by .Shanna Thompson MD, MD on 10/13/2017 15:24 .T/ CC: SANTIAGO DAMON DO Patient's symptoms are concerning for cardiac cause will require inpatient workup and continuous monitoring. Further w/u for ischemia, arrhythmia, PE or dissection will be deferred to the inpatient team. Accepting Care Team: Current data and ongoing care discussed. Time: Time of admission Primary Provider: Martínez Consulting: DEWEY Ramirez Data: none Departure Diagnosis: Primary Impression: Chest pain Chest pain type: unspecified Qualified Code: R07.9 - Chest pain, unspecified type Condition: Stable SANTIAGO DAMON DO Oct 13, 2017 17:34
[2017-10-13] MEDS ORDERED: DOCUSATE SODIUM 100 MG CAP PO PRN (18:00)
[2017-10-13] MEDS ORDERED: NACL 0.9% 3 ML SYG IV SCH (18:00)
[2017-10-13] MEDS ORDERED: MAGNESIUM HYDROXIDE 30ML CUP PO PRN (18:00)
[2017-10-13] MEDS ORDERED: hydrALAzine 20 MG INJ IV PRN (18:00)
[2017-10-13] MEDS ORDERED: ACETAMINOPHEN 325 MG TAB PO PRN ×2 (18:00)
[2017-10-13] MEDS ORDERED: ONDANSETRON 4 MG INJ IV PRN ×2 (18:00)
--- NOTE | 2017-10-13 18:29 | HP ---
Date/Time of Note Date/Time of Note DATE: 10/13/17 TIME: 18:08 Assessment/Plan VTE Prophylaxis VTE Prophylaxis Intervention: LMWH Lines/Catheters IV Catheter Type (from Nrsg): Saline Lock Assessment/Plan Assessment/Plan 1. Acute chest pain rule out ACS - Etiology most likely GI - troponin negative x1 and will continue to trend. EKG- normal sinus with no acute ST-T changes - ECHO ordered - Lipid panel ordered - TSH - start on PPI - if any abnormalities, consider Cardiology consultation - will check LFTs due to questionable Fermin. Was difficult to fully assess since was saying yes to pain with palpation of RUQ then would move my hand epigastric area 2. DM - will check A1c - continue on home glipizide - ISS and accuchecks 3. HTN - SBP elevated and will continue home medications and adjust as needed - Hydralazine PRN 4. Code status - Full code 5. GI ppx - PPI 6. DVT - LMWH 7. Diet - carb controlled, only fish 8. Disposition - Admit to telemetry HPI/ROS Admit Date/Time Admit Date/Time 10/13/17 Hx of Present Illness 46 yo F with PMH HTN and DM presented with 5 day history of chest pain that has been persistent. Daughter at bedside and history obtained from daughter and patient. Patient states pain is pressure in nature, moderate severity, worse after drinking fluids and eating, better after nitro and aspirin. Patient states she has associated shortness of breath but denies any nausea, vomiting, sweats, chills, palpitations, dizziness, or LOC. Since nitro patch placed states pressure is more intermittent. Has not experiencing this pain in the past and states blood pressure has been elevated over the past 5 days as well. ROS All 12 systems reviewed and pertinent positives as per HPI. All others negative. Constitutional: fatigue, No chills, No diaphoresis, No nausea Eyes: no complaints ENT: No congestion, No discharge Respiratory: shortness of breath, No cough, No sputum, No wheezing Cardiovascular: chest pain, No lightheadedness, No palpitations Gastrointestinal: constipation, pain, No diarrhea, No nausea, No vomiting Genitourinary: no complaints Musculoskeletal: No back pain, No neck pain Skin: No bruising, No pruritis, No rash Neurologic: no complaints Endocrine: no complaints Lymphatic: no complaints Psychological: nl mood/affect Immunologic: no complaints PMH/Family/Social Past Medical History Medical History: diabetes, hypertension Past Surgical History Past Surgical Hx: no surgical history Family History Significant Family History: no pertinent family hx Social History Alcohol Use: none Smoking Status: Never smoker Drug Use: none Exam/Review of Systems Vital Signs Vitals Vital Signs Date Time Temp Pulse Resp B/P Pulse Ox O2 Delivery O2 Flow Rate FiO2 10/13/17 14:50 95 18 181/91 98 Nasal Cannula 2.0 10/13/17 13:31 98.7 Exam Constitutional: alert, oriented, well developed Psych: nl mood/affect Head: atraumatic, normocephalic Eyes: EOMI, PERRL ENMT: mucosa pink and moist Neck: non-tender, supple Respiratory: clear to auscultation, No crackles/rales, No diminished breath sounds, No wheezing Cardiovascular: regular rate and rhythm, No murmurs/extra sounds Gastrointestinal: soft, tender (epigastric area with palpation) Genitourinary - Female: No CVA tenderness Musculoskeletal: nl extremities to inspection Extremities: normal pulses, No edema Neurological: ENAMEL BUFFER II-XII intact, nl mental status, nl speech Skin: nl turgor Lymph: nl lymph nodes Labs Result Diagram: 10/13/17 1420 10/13/17 1420 Medications Medications Home medications reviewed Current Medications Gabapentin (Neurontin) 100 mg TID PO ; Start 10/13/17 at 21:00; Status UNV Glipizide (Glucotrol) 5 mg BID PO ; Start 10/13/17 at 21:00; Status UNV Lisinopril (Zestril) 10 mg DAILY PO ; Start 10/14/17 at 09:00; Status UNV Metoprolol Tartrate (Lopressor) 50 mg BID PO ; Start 10/13/17 at 21:00; Status UNV Miscellaneous Information 2,000 unit DAILY PO ; Start 10/14/17 at 09:00; Status UNV Miscellaneous Information 40 mg DAILY PO ; Start 10/14/17 at 09:00; Status UNV Hydralazine HCl (Apresoline) 10 mg Q4H PRN IV SBP >180; Start 10/13/17 at 18:00 ; Status UNV Ondansetron HCl (Zofran Inj) 4 mg Q6H PRN IV NAUSEA AND/OR VOMITING; Start 10/13/17 at 18:00; Status UNV Acetaminophen (Tylenol Tab) 650 mg Q6H PRN PO PAIN LEVEL 1-3 OR FEVER; Start 10/13/17 at 18:00; Status UNV Docusate Sodium (Colace) 100 mg Q12H PRN PO CONSTIPATION; Start 10/13/17 at 18: 00; Status UNV Magnesium Hydroxide (Milk Of Mag) 30 ml DAILY PRN PO CONSTIPATION; Start at 18:00; Status UNV Pantoprazole (Protonix Tab) 40 mg DAILY@06 PO ; Start 10/14/17 at 06:00; Status UNV Enoxaparin Sodium (Lovenox) 40 mg DAILY SC ; Start 10/14/17 at 09:00; Status UNV Procedures Procedures PROCEDURE: XR Chest. CLINICAL INDICATION: Chest pain. TECHNIQUE: Chest x-ray, single view. COMPARISON: 06/25/2016. FINDINGS: The cardiac silhouette is slightly magnified. There is no focal pulmonary parenchymal opacification or evidence of pleural effusion. Skeletal structures and upper abdomen are unremarkable. IMPRESSION: No radiographic evidence of acute cardiopulmonary pathology. CHAIM SAM MD Oct 13, 2017 18:29
[2017-10-13] MEDS ORDERED: Discontinue current oral sulfonylureas (glyburide, glipizide, and/or glimepiride) prior to XX ONE (18:30)
[2017-10-13] MEDS ORDERED: GLUCOSE GEL 15 GRAM TUBE PO PRN ×2 (18:30)
[2017-10-13] MEDS ORDERED: GLUCAGON 1 MG INJ IM PRN (18:30)
[2017-10-13] MEDS ORDERED: GLUCOSE GEL 15 GRAM TUBE BUCCAL PRN (18:30)
[2017-10-13] MEDS ORDERED: HYPOGLYCEMIA PROTOCOL when Glucose is <70 mg/dL or symptomatic <90 mg/dL. XX ONE (18:30)
[2017-10-13] MEDS ORDERED: DEXTROSE 50% 50 ML SYRINGE IV PRN ×2 (18:30)
[2017-10-13 18:48] LABS: CHOL/HDL RATIO 4.6 RATIO
[2017-10-13 18:49] LABS: ALBUMIN 4.2 g/dl (3.3-4.9); BILIRUBIN,INDIRECT 0.3 mg/dl (0-1.1); BILIRUBIN,TOTAL 0.3 mg/dl (0.2-1.3); TOTAL PROTEIN 7.9 g/dl (6.1-8.1)
[2017-10-13 19:08] VITALS: TEMP 98.8
[2017-10-13] MEDS ORDERED: ONDANSETRON (ODT) 4 MG TAB ODT STA (19:56)
[2017-10-13] MEDS ORDERED: morphine 4 MG/ML VIAL IV STA (19:58)
[2017-10-13] MEDS ORDERED: IBUPROFEN 600 MG TAB PO ONE (20:00)
[2017-10-13] MEDS ORDERED: glipiZIDE 5 MG TAB PO SCH (21:00)
[2017-10-13 21:33] LABS: CREATINE KINASE 134 IU/L (23-200)
[2017-10-13 21:46] LABS: CK-MB 0.41 ng/ml (0.0-2.4)
[2017-10-13 21:48] LABS: TROPONIN-I < 0.012 ng/ml (0.00-0.12)
[2017-10-13 22:09] VITALS: PULSE 57
[2017-10-13 23:50] VITALS: BP 143/81; RESP 20
[2017-10-13] MEDS: INSULIN ASPART [NOVOLOG] 3 ML PEN SC SCH (23:54)
[2017-10-13] MEDS: GABAPENTIN 100 MG CAP PO SCH (23:56)
[2017-10-13] MEDS: METOPROLOL 50 MG TAB PO SCH (23:57)
[2017-10-14] VITALS (11 sets, daily range): BP systolic 102–143; BP diastolic 59–79; PULSE 54–64; RESP 17–20
[2017-10-14 01:22] LABS: CREATINE KINASE 144 IU/L (23-200)
[2017-10-14] MEDS: ACCU-CHEK XX SCH (01:42)
[2017-10-14 01:50] LABS: TROPONIN-I < 0.012 ng/ml (0.00-0.12)
[2017-10-14] MEDS ORDERED: PANTOPRAZOLE (EC) 40 MG TAB PO SCH (06:00)
[2017-10-14] MEDS: INSULIN ASPART [NOVOLOG] 3 ML PEN SC SCH ×4 (08:00→20:58)
[2017-10-14 08:53] LABS: BASOPHIL # 0.1 10^3/ul (0.0-0.1); BASOPHILS % 0.5 % (0.0-2.0); EOSINOPHILS # 0.2 10^3/ul (0.0-0.5); HEMATOCRIT 32.7 % (37.0-47.0); HEMOGLOBIN 10.7 g/dl (12.0-16.0); LYMPHOCYTES # 2.5 10^3/ul (0.8-2.9); LYMPHOCYTES % 24.2 % (15.0-51.0); MEAN CORPUSCULAR HEMOGLOBIN 26.1 pg (29.0-33.0); MEAN CORPUSCULAR HGB CONC 32.7 g/dl (32.0-37.0); MEAN CORPUSCULAR VOLUME 79.8 fl (82.0-101.0); MEAN PLATELET VOLUME 12.6 fl (7.4-10.4); MONOCYTE # 0.6 10^3/ul (0.3-0.9); MONOCYTES % 5.7 % (0.0-11.0); NEUTROPHIL # 6.9 10^3/ul (1.6-7.5); NEUTROPHILS % 67.2 % (39.0-77.0); PLATELET COUNT 250 10^3/UL (140-415); RED CELL DISTRIBUTION WIDTH 14.3 % (11.5-14.5); WHITE BLOOD COUNT 10.2 10^3/ul (4.8-10.8)
[2017-10-14] MEDS: ASPIRIN 81 MG TAB PO SCH (08:53)
[2017-10-14] MEDS: PANTOPRAZOLE (EC) 40 MG TAB PO SCH (08:53)
[2017-10-14] MEDS: LISINOPRIL 10 MG TAB PO SCH (08:53)
[2017-10-14] MEDS: GABAPENTIN 100 MG CAP PO SCH ×3 (08:54→20:57)
[2017-10-14] MEDS: METOPROLOL 50 MG TAB PO SCH ×2 (08:54→20:57)
[2017-10-14] MEDS: CHOLECALCIFEROL 2,000 UNIT CAP PO SCH (08:54)
[2017-10-14 09:14] LABS: ALBUMIN 3.5 g/dl (3.3-4.9); CALCIUM 8.7 mg/dl (8.4-10.2); CREATININE 0.97 mg/dl (0.44-1.00); MAGNESIUM 1.7 mg/dl (1.7-2.5); POTASSIUM 3.8 mmol/L (3.5-5.1)
[2017-10-14] MEDS: ENOXAPARIN 40 MG/0.4 ML SYG SC SCH (09:35)
--- NOTE | 2017-10-14 15:24 | PN ---
Date/Time of Note Date/Time of Note DATE: 10/14/17 TIME: 15:18 Assessment/Plan VTE Prophylaxis VTE Prophylaxis Intervention: ambulation, SCD's Lines/Catheters IV Catheter Type (from Nrsg): Saline Lock Urinary Cath still in place: No Assessment/Plan Chief Complaint/Hosp Course s: 12.4 still mild substernal pain o: Physical exam General: Patient is laying in bed and answers questions appropriately Mentation: Patient is alert and oriented 4, Head: Normocephalic atraumatic Eyes: EOMI, pupils reactive to light Neck: Supple, nontender, midline Respiratory: Clear to auscultation bilaterally Cardiovascular: regular rate, no obvious murmurs Gastrointestinal: non-tender to palpation, bowel sounds heard. Neurological: Moves all extremities spontaneously Skin: No new skin lesions Assessment/Plan 1. Acute chest pain rule out ACS - Etiology most likely GI - troponin negative x1 and will continue to trend. EKG- normal sinus with no acute ST-T changes - ECHO ordered - Lipid panel ordered - TSH - start on PPI - if any abnormalities, consider Cardiology consultation - will check LFTs due to questionable Fermin. Was difficult to fully assess since was saying yes to pain with palpation of RUQ then would move my hand epigastric area 2. DM - A1c noted - continue on home glipizide - ISS and accuchecks 3. HTN - SBP elevated and will continue home medications and adjust as needed - Hydralazine PRN 4. Code status - Full code 5. GI ppx - PPI 6. DVT - LMWH 7. Diet - carb controlled, only fish 8. Disposition - monitor overnight -start new meds -likely DC tomorrow Problems: Exam/Review of Systems Vital Signs Vitals Vital Signs Date Time Temp Pulse Resp B/P Pulse Ox O2 Delivery O2 Flow Rate FiO2 10/14/17 12:00 55 10/14/17 11:42 97.5 17 121/68 97 10/13/17 19:08 Room Air 10/13/17 14:50 2.0 Intake and Output 10/13/17 10/13/17 10/14/17 15:00 23:00 07:00 Intake Total 400 ml Balance 400 ml Results Result Diagram: 10/14/17 0706 10/14/17 0706 Results 24 hrs Laboratory Tests Test 10/13/17 19:34 10/13/17 20:58 10/13/17 23:52 10/14/17 00:52 Bedside Glucose 91 135 Creatine Kinase 134 144 Creatine Kinase Index 0.3 0.2 Creatinine Kinase MB (Mass) 0.41 0.30 Troponin I < 0.012 < 0.012 Test 10/14/17 07:06 10/14/17 08:52 10/14/17 12:13 White Blood Count 10.2 Red Blood Count 4.10 L Hemoglobin 10.7 L Hematocrit 32.7 L Mean Corpuscular Volume 79.8 L Mean Corpuscular Hemoglobin 26.1 L Mean Corpuscular Hemoglobin Concent 32.7 Red Cell Distribution Width 14.3 Platelet Count 250 Mean Platelet Volume 12.6 H Neutrophils % 67.2 Lymphocytes % 24.2 Monocytes % 5.7 Eosinophils % 2.0 Basophils % 0.5 Nucleated Red Blood Cells % 0.0 Neutrophils # 6.9 Lymphocytes # 2.5 Monocytes # 0.6 Eosinophils # 0.2 Basophils # 0.1 Nucleated Red Blood Cells # 0.0 Sodium Level 139 Potassium Level 3.8 Chloride Level 104 Carbon Dioxide Level 25 Anion Gap 14 Blood Urea Nitrogen 15 Creatinine 0.97 Glucose Level 129 # Calcium Level 8.7 Phosphorus Level 4.0 Magnesium Level 1.7 Albumin 3.5 Bedside Glucose 138 142 Medications Medications Current Medications Gabapentin (Neurontin) 100 mg TID PO Last administered on 10/14/17 12:14; Admin Dose 100 MG; Start 10/13/17 at 21:00 Lisinopril (Zestril) 10 mg DAILY PO Last administered on 10/14/17 08:53; Admin Dose 10 MG; Start 10/14/17 at 09:00 Metoprolol Tartrate (Lopressor) 50 mg BID PO Last administered on 10/14/17 08: 54; Admin Dose 50 MG; Start 10/13/17 at 21:00 Cholecalciferol (Vitamin D) 2,000 unit DAILY PO Last administered on 10/14/17 08:54; Admin Dose 2,000 UNIT; Start 10/14/17 at 09:00 Pantoprazole (Protonix Tab) 40 mg DAILY@06 PO Last administered on 10/14/17 05 :39; Admin Dose 40 MG; Start 10/14/17 at 06:00 Hydralazine HCl (Apresoline) 10 mg Q4H PRN IV SBP >180; Start 10/13/17 at 18:00 Ondansetron HCl (Zofran Inj) 4 mg Q6H PRN IV NAUSEA AND/OR VOMITING Last administered on 10/14/17 10:03; Admin Dose 4 MG; Start 10/13/17 at 18:00 Acetaminophen (Tylenol Tab) 650 mg Q6H PRN PO PAIN LEVEL 1-3 OR FEVER; Start 10/13/17 at 18:00 Docusate Sodium (Colace) 100 mg Q12H PRN PO CONSTIPATION; Start 10/13/17 at 18: 00 Magnesium Hydroxide (Milk Of Mag) 30 ml DAILY PRN PO CONSTIPATION; Start at 18:00 Pantoprazole (Protonix Tab) 40 mg DAILY@06 PO Last administered on 10/14/17 08 :53; Admin Dose 40 MG; Start 10/14/17 at 06:00 Enoxaparin Sodium (Lovenox) 40 mg DAILY SC Last administered on 10/14/17 09:35 ; Admin Dose 40 MG; Start 10/14/17 at 09:00 Diagnostic Test (Pha) (Accu-Chek) 1 ea 02 XX ; Start 10/14/17 at 02:00 Aspirin (Aspirin) 81 mg DAILY PO Last administered on 10/14/17 08:53; Admin Dose 81 MG; Start 10/14/17 at 09:00 Miscellaneous Information 1 ea NOTE XX ; Start 10/13/17 at 18:30 Glucose (Glutose) 15 gm Q15M PRN PO DECREASED GLUCOSE; Start 10/13/17 at 18:30 Glucose (Glutose) 22.5 gm Q15M PRN PO DECREASED GLUCOSE; Start 10/13/17 at 18: 30 Dextrose (D50w Syringe) 25 ml Q15M PRN IV DECREASED GLUCOSE; Start 10/13/17 at 18:30 Dextrose (D50w Syringe) 50 ml Q15M PRN IV DECREASED GLUCOSE; Start 10/13/17 at 18:30 Glucagon (Glucagen) 1 mg Q15M PRN IM DECREASED GLUCOSE; Start 10/13/17 at 18:30 Glucose (Glutose) 15 gm Q15M PRN BUCCAL DECREASED GLUCOSE; Start 10/13/17 at 18 :30 ELIZABETH ROBLEDO Oct 14, 2017 15:24
[2017-10-14] MEDS ORDERED: LIDOCAINE/MYLANTA 40 ML BTL PO ONE (15:30)
[2017-10-14] MEDS: SUCRALFATE (100 MG/ML) 10ML CUP PO SCH ×2 (16:17→20:57)
--- NOTE | 2017-10-14 17:45 | RADRPT ---
Echocardiogram Report Patient Name: MARIAN ORTA Gender: Female Date: 1970 Study Date: 14-Oct-2017 Absorption And Adsorption Engineer: Doyle Cannon [facility] Location: [id number] Ref. Physician: CHAIM SAM Quality: Adequate Procedures: Transthoracic echocardiogram with complete 2D, M-Mode, and doppler examination. Indications: Chest Pain. 2D/M Mode Doppler Measurement Value Normal Ranges Measurement Value Normal Ranges LVIDd 2D 4.6 3.5 - 5.6 cm AV Peak Festus 1.3 m/sec LVIDs 2D 2.7 2.1 - 4.1 cm AV Peak PG 7.0 mmHg FS 2D 41.0 % LVOT Peak Festus 1.0 m/sec LVPWd 2D 0.9 0.6 - 1.1 cm LVOT Peak PG 4.0 mmHg IVSd 2D 1.0 0.6 - 1.1 cm MV E Peak Festus 0.7 m/sec IVS/LVPW 2D 1.0 MV A Peak Festus 0.6 m/sec AoR Diam 2D 2.4 2.0 - 3.7 cm MV E/A 1.3 LA/Ao 2D 2 0 - 1 MV Decel Time 158 msec EDV 2D 99.3 cm3 MV E/A 1.3 ESV 2D 20.3 cm3 TR Peak Festus 2.2 m/sec LA Dimen 2D 3.6 2.3 - 4.0 cm TR Peak PG 19.0 mmHg RVSP 29.0 mmHg Findings Left Ventricle: Normal left ventricular systolic function. Normal left ventricular cavity size. Normal left ventricular wall thickness. Ejection fraction is visually estimated at 60 %. Tissue Doppler/Mitral Doppler indices are consistent with pseudonormalization with mildly elevated left atrial pressure (Stage II diastolic dysfunction). Right Ventricle: Normal right ventricular size. Normal right ventricular systolic function. Left Atrium: The left atrium is normal in size. Right Atrium: The right atrium is normal in size. Mitral Valve: Mild mitral leaflet calcification. Mild mitral annular calcification. Trace mitral regurgitation. Aortic Valve: Normal appearance of the aortic valve. Tricuspid Valve: Normal appearance of the tricuspid valve. Estimated peak PA systolic pressure 29 mmHg. There is mild tricuspid regurgitation. Pulmonic Valve: Pulmonic valve not well visualized. There is trace pulmonic regurgitation. Pericardium: Normal pericardium with no significant pericardial effusion. Aorta: Normal aortic root. IVC: Normal size and normal respiratory collapse consistent with normal right atrial pressure. Conclusions 1.Normal left ventricular systolic function. Normal left ventricular cavity size. Normal left ventricular wall thickness. Ejection fraction is visually estimated at 60 %. Tissue Doppler/Mitral Doppler indices are consistent with pseudonormalization with mildly elevated left atrial pressure (Stage II diastolic dysfunction). 2.Normal appearance of the aortic valve. 3.Mild mitral leaflet calcification. Mild mitral annular calcification. Trace mitral regurgitation. 4.Normal appearance of the tricuspid valve. Estimated peak PA systolic pressure 29 mmHg. There is mild tricuspid regurgitation. Electronically Signed By: Sushant Dietz 14-Oct-2017 17:45:09 -0800 Patient Name: MARIAN ORTA Study Date: 14-Oct-[id number]
[2017-10-14] MEDS: METHOCARBAMOL 750 MG TAB PO SCH (20:57)
[2017-10-15] VITALS (8 sets, daily range): BP systolic 124–160; BP diastolic 74–85; PULSE 62–68; RESP 17–18
[2017-10-15] MEDS: ACCU-CHEK XX SCH (02:00)
[2017-10-15] MEDS: PANTOPRAZOLE (EC) 40 MG TAB PO SCH (05:48)
[2017-10-15 08:32] LABS: BASOPHILS % 0.4 % (0.0-2.0); EOSINOPHILS # 0.2 10^3/ul (0.0-0.5); EOSINOPHILS % 1.9 % (0.0-7.0); HEMATOCRIT 36.7 % (37.0-47.0); HEMOGLOBIN 11.7 g/dl (12.0-16.0); LYMPHOCYTES # 2.5 10^3/ul (0.8-2.9); LYMPHOCYTES % 24.3 % (15.0-51.0); MEAN CORPUSCULAR HEMOGLOBIN 25.7 pg (29.0-33.0); MEAN CORPUSCULAR HGB CONC 31.9 g/dl (32.0-37.0); MEAN CORPUSCULAR VOLUME 80.5 fl (82.0-101.0); MONOCYTE # 0.5 10^3/ul (0.3-0.9); MONOCYTES % 4.6 % (0.0-11.0); NEUTROPHIL # 6.9 10^3/ul (1.6-7.5); NEUTROPHILS % 68.5 % (39.0-77.0); PLATELET COUNT 284 10^3/UL (140-415); RED BLOOD COUNT 4.56 10^6/ul (4.20-5.40); RED CELL DISTRIBUTION WIDTH 13.9 % (11.5-14.5); WHITE BLOOD COUNT 10.1 10^3/ul (4.8-10.8)
[2017-10-15] MEDS: SUCRALFATE (100 MG/ML) 10ML CUP PO SCH ×2 (08:50→12:46)
[2017-10-15] MEDS: GABAPENTIN 100 MG CAP PO SCH ×2 (08:50→12:46)
[2017-10-15] MEDS: CHOLECALCIFEROL 2,000 UNIT CAP PO SCH (08:50)
[2017-10-15] MEDS: ASPIRIN 81 MG TAB PO SCH (08:50)
[2017-10-15] MEDS: LISINOPRIL 10 MG TAB PO SCH (08:51)
[2017-10-15] MEDS: METHOCARBAMOL 750 MG TAB PO SCH ×2 (08:51→12:46)
[2017-10-15] MEDS: METOPROLOL 50 MG TAB PO SCH (08:52)
[2017-10-15] MEDS: ENOXAPARIN 40 MG/0.4 ML SYG SC SCH (08:53)
[2017-10-15] MEDS: INSULIN ASPART [NOVOLOG] 3 ML PEN SC SCH ×2 (08:54→12:00)
[2017-10-15 09:10] LABS: ALBUMIN 3.6 g/dl (3.3-4.9); CALCIUM 8.9 mg/dl (8.4-10.2); CREATININE 1.03 mg/dl (0.44-1.00); MAGNESIUM 1.8 mg/dl (1.7-2.5); PHOSPHORUS 3.2 mg/dl (2.5-4.9); POTASSIUM 3.8 mmol/L (3.5-5.1)
--- NOTE | 2017-10-15 10:24 | PDOCDIS ---
Discharge Instructions CONDITION Patient Condition: Stable HOME CARE INSTRUCTIONS: Special Diet: Carb Controlled ACTIVITY: Activity Restrictions: Slowly Increase Activity FOLLOW UP/APPOINTMENTS Follow-up Plan 1. Follow up with your primary care physician as soon as possible 2. Take all new medications as directed ELIZABETH ROBLEDO Oct 15, 2017 10:24
[2017-10-15] MEDS ORDERED: METH750T2 PO (10:40)
[2017-10-15] MEDS ORDERED: CARAS PO (10:40)
[2017-10-15] MEDS ORDERED: PANT40TA4 PO (10:40)
--- NOTE | 2017-10-15 15:38 | DS ---
Date/Time of Note Date/Time of Note DATE: 10/15/17 TIME: 15:37 Discharge Summary Admission/Discharge Info Admit Date/Time Oct 13, 2017 at 17:32 Discharge Date/Time Oct 15, 2017 at 13:07 Patient Condition: Stable Hospital Course Patient presented with substernal chest pain, patient was evaluated and admitted into [facility] for chest pain rule out. Patient had an echocardiogram which was within normal limits, patient's labs stayed within normal limits and patient's troponin levels were negative 3. Patient's EKG was also normal sinus with no ST changes and patient's chest pain eventually resolved. It is highly likely patient's chest pain was musculoskeletal in origin as her pain improved over time and with muscle relaxers. Patient will be discharged with additional GI medication such as pantoprazole with Carafate as well as a 3 day course of muscle relaxer, patient was instructed to continue her home medications and to follow-up with her primary care provider as soon as possible Discharge diagnoses Chest pain, musculoskeletal very likely Diabetes mellitus Hypertension Home Meds Active Scripts Methocarbamol* (Methocarbamol*) 750 Mg Tablet, 1500 MG PO TID for 3 Days, #9 TAB Prov:ELIZABETH ROBLEDO 10/15/17 Pantoprazole* (Pantoprazole*) 40 Mg Tablet., 40 MG PO DAILY@06 for 30 Days, # 30 2 Refills Prov:ELIZABETH ROBLEDO 10/15/17 Sucralfate* (Carafate*) 1 Gm/10 Ml Susp, 1 GM PO QID for 30 Days, #1200 ML Prov:ELIZABETH ROBLEDO 10/15/17 Reported Medications Cholecalciferol (Vitamin D3) (Vitamin D3) 2,000 Unit Tab.chew, 2000 UNIT PO DAILY, TAB.CHEW 10/13/17 Metoprolol Tartrate* (Lopressor*) 50 Mg Tab, 50 MG PO BID, #60 TAB 10/13/17 Lisinopril* (Lisinopril*) 10 Mg Tablet, 10 MG PO DAILY, #30 TAB 01/31/17 Glipizide* (Glipizide*) 5 Mg Tablet, 5 MG PO BID, TAB 06/20/16 Gabapentin* (Gabapentin*) 100 Mg Capsule, 100 MG PO TID, #90 CAP 06/20/16 Discontinued Reported Medications Omeprazole* (Omeprazole*) 40 Mg Capsule., 40 MG PO DAILY, #30 CAP 06/20/16 Glipizide* (Glipizide*) 5 Mg Tablet, 5 MG PO AC BREAKFAST DINNER, TAB 01/31/17 Metoprolol Tartrate* (Lopressor*) 25 Mg Tab, 25 MG PO BID, #60 TAB 01/31/17 Gabapentin* (Gabapentin*) 100 Mg Capsule, 100 MG PO TID, #90 CAP 01/31/17 Cholecalciferol* (Vitamin D3*) 1,000 Unit Tablet, 1000 UNIT PO DAILY, TAB 01/31/17 Aspirin* (Aspirin* Chew) 81 Mg Tab.chew, 81 MG PO DAILY, TAB.CHEW 06/20/16 Metoprolol Tartrate* (Lopressor*) 25 Mg Tablet, 25 MG PO BID, #60 TAB 06/20/16 Metformin* (Glucophage*) 500 Mg Tab, 500 MG PO WITH LUNCH DINNER, #60 TAB 06/20/16 Ergocalciferol* (Drisdol* (Vitamin D2)) 50,000 Unit Capsule, 67108 UNIT PO Q7D, CAP 06/20/16 Discontinued Scripts Naproxen* (Naprosyn*) 500 Mg Tablet, 500 MG PO BID Y for PAIN AND/OR INFLAMMATION, #30 TAB Prov:DALIA BRIGGS PA-C 07/04/17 Ciprofloxacin Hcl* (Ciprofloxacin Hcl*) 500 Mg Tablet, 500 MG PO BID for 7 Days , #14 TAB Prov:DALIA BRIGGS PA-C 07/04/17 Docusate Sodium* (Colace*) 100 Mg Capsule, 100 MG PO DAILY Y for constipation, # 30 CAP Prov:PASILACOLLEEN LAN 04/08/17 Phenazopyridine Hcl* (Pyridium*) 200 Mg Tab, 200 MG PO TID Y for URINARY PAIN, # 6 TAB Prov:COLLEEN HINKLE 04/08/17 Ondansetron (Ondansetron Odt) 4 Mg Tab.rapdis, 4 MG PO Q6H Y for NAUSEA AND/OR VOMITING, #15 TAB Prov:COLLEEN HINKLE 04/08/17 Acetaminophen* (Tylophen*) 500 Mg Capsule, 1 CAP PO Q6H Y for PAIN AND OR ELEVATED TEMP, #20 CAP Prov:PASILACOLLEEN LAN 04/08/17 Ciprofloxacin Hcl* (Ciprofloxacin Hcl*) 500 Mg Tablet, 500 MG PO BID, #14 TAB Prov:ESTEBAN LANDRY V. MATTRESS INSPECTOR 06/28/16 Amlodipine Besylate* (Amlodipine Besylate*) 10 Mg Tablet, 10 MG PO DAILY, #30 TAB Prov:LANDRYCHULAA V. MATTRESS INSPECTOR 06/24/16 Hydrocodone Bit-Acetaminophen* ([place]*) 10-325 Mg Tablet, 1 TAB PO Q6 Y for PAIN , #20 TAB Prov:DALIA CARTER 06/20/16 Follow-up Plan 1. Follow up with your primary care physician as soon as possible 2. Take all new medications as directed Primary Care Provider Lui Win MD Time spent on discharge: > 30 minutes Pending Labs Laboratory Tests Test 10/14/17 17:19 10/14/17 20:55 10/15/17 07:47 10/15/17 08:49 Bedside Glucose 124mg/dL (70-220) 125mg/dL (70-220) 150mg/dL (70-220) White Blood Count 10.110^3/ul (4.8-10.8) Red Blood Count 4.5610^6/ul (4.20-5.40) Hemoglobin 11.7g/dl (12.0-16.0) Hematocrit 36.7% (37.0-47.0) Mean Corpuscular Volume 80.5fl (82.0-101.0) Mean Corpuscular Hemoglobin 25.7pg (29.0-33.0) Mean Corpuscular Hemoglobin Concent 31.9g/dl (32.0-37.0) Red Cell Distribution Width 13.9% (11.5-14.5) Platelet Count 59570^3/UL (140-415) Mean Platelet Volume 12.0fl (7.4-10.4) Neutrophils % 68.5% (39.0-77.0) Lymphocytes % 24.3% (15.0-51.0) Monocytes % 4.6% (0.0-11.0) Eosinophils % 1.9% (0.0-7.0) Basophils % 0.4% (0.0-2.0) Nucleated Red Blood Cells % 0.0/100WBC (0.0-0.0) Neutrophils # 6.910^3/ul (1.6-7.5) Lymphocytes # 2.510^3/ul (0.8-2.9) Monocytes # 0.510^3/ul (0.3-0.9) Eosinophils # 0.210^3/ul (0.0-0.5) Basophils # 0.010^3/ul (0.0-0.1) Nucleated Red Blood Cells # 0.010^3/ul (0.0-0.0) Sodium Level 141mmol/L (135-144) Potassium Level 3.8mmol/L (3.5-5.1) Chloride Level 105mmol/L (97-110) Carbon Dioxide Level 28mmol/L (21-31) Anion Gap 12 (8-16) Blood Urea Nitrogen 14mg/dl (7-20) Creatinine 1.03mg/dl (0.44-1.00) Glucose Level 150mg/dl (70-220) Calcium Level 8.9mg/dl (8.4-10.2) Phosphorus Level 3.2mg/dl (2.5-4.9) Magnesium Level 1.8mg/dl (1.7-2.5) Albumin 3.6g/dl (3.3-4.9) ELIZABETH ROBLEDO Oct 15, 2017 15:38
[2017-10-16] MEDS ORDERED: LISINOPRIL 10 MG TAB PO SCH (09:00)
== END 2017-10-15 13:07 | disposition home or self-care (01) | DRG 313 ==
LOC: E/R 13:29 → MS4 17:32
PROVIDERS: ADMIT Internal Medicine; ATTEND Internal Medicine
DX: R07.89 Other chest pain (principal); I10 Essential (primary) hypertension; E11.9 Type 2 diabetes mellitus without complications
CPT/HCPCS: 36415; 71010; 80048; 80061; 80069; 80076; 82550; 82553; 82962; 83036; 83735; 84443; 84484; 85025; 93005; 93306; 96374; J1650; J1815; J2270; J2405

== ENCOUNTER 2017-10-21 14:10 | Outpatient (CLI) | payer OTHER ==
[~2017-10-21] VITALS: Ht 165.1 cm; Wt 63.6 kg
[~2017-10-21 14:10] MED LIST changes: -ACET500C5 PO; -AMLO-147 PO; -ASPI81TA3 PO; +CARAS PO; -CHOL100062 PO; +CHOL200078 PO; -CIPR500T4 PO; -DOCU-144 PO; -ERGO500014 PO; -HYDR-762 PO; -METF500T4 PO; +METH750T2 PO; +METO-429 PO; -METO-448 PO; -METO25TA4 PO; -NAPR-260 PO; -OMEP40CA6 PO; -ONDA4TAB14 PO; +PANT40TA4 PO; -PHEN-538 PO
[2017-10-21 14:33] VITALS: BP 187/91; PULSE 68; RESP 16
[2017-10-21 14:34] VITALS: Ht 165.1 cm; Wt 63.6 kg
--- NOTE | 2017-10-21 14:54 | PN ---
Date/Time of Note Date/Time of Note DATE: 10/21/17 TIME: 14:50 Outpatient Progress Note Chief Complaint Chest pain/PUD/hypertension/diabetes HPI Chest pain/patient was recently admitted with chest pain, patient still has occasional chest discomfort, no PND orthopnea, no radiation, pain get worse sometimes with drinking water or eating, PUD/no nausea vomiting, no heartburn, no melena, Hypertension/no headache or dizziness, Diabetes/no polydipsia ability hypoglycemia, Review of Systems Const: No Fever, no chills, no Wt. loss, no Fatigue, normal appetite, no diaphoresis. Eyes: No pain, no discharge, no redness, no visual change, no foreign body. ENT: No pain, no bleeding, no congestion, no sore throat, no dysphagia, no discharge or rhinitis. Lymph: No adenopathy, no tender nodes, no lymphedema. Resp: No SOB, no cough, no sputum, no wheezing, no chest pain. CV: Occasional chest pain, no palpitaions, no TURNER, no PND, no edema. GI: Normal appetite, no pain, no nausea, no vomiting, no diarrhea, no blood, no constipation. : No frequency, no urgency, no dysuria, no hematuria, no flank pain, no discharge, no bleeding. Musc: no back pain, no neck pain, no knee pain, no restricted ROM. Skin: No rash, no skin lesions, no erythema, no laceration, no bruising, no pruritus. Neuro: No GILLIS, no dizziness, no syncope, no seizure, no focal-weakness. Endo: No polyuria, no polydypsia, no dry-skin, no temp-intolerance. Psych: No hallucinations, no depression, no anxiety, no suicidal ideation. Ext: No edema, no pain, no ulcer, no weakness. Physical Exam Vital Signs Date Time Temp Pulse Resp B/P Pulse Ox O2 Delivery O2 Flow Rate FiO2 10/21/17 14:33 98.0 68 16 187/91 96 Room Air General Appearance: A year-old 46-year-old female who appears well-developed, well-nourished, in no acute distress. HEENT: Head normocephalic, atraumatic. Pupils equal, round, reactive to light and accommodate. Sclerae are no jaundice. Nasal turbinates pink without erythema or nasal discharge. Mucous membranes pink and moist without lesions. Oropharynx clear without any exudate or discharge. NECK: Supple. Trachea midline, No thyromegaly, No cervical lymphadenopathy, No mass, No carotid bruits, No JVD, Carotid pulses 2+ bilaterally. PULMONARY: Clear to auscultaion bilaterally, No retractions, Chest expansion symmetric bilaterally, no rales, no ronchi, no dulness on percussion. CARDIAC: Normal SI and S2, Regular rate and rythm, no murmur, gallop, or rub. GASTROINTESTINAL: Abdomen is soft, non-tender, Non Rigid, No distention, Positive bowel sounds x4 quadrants, Liver normal. SKIN: Warm, dry, no rash, no bruise, no echmosis. EXTREMITIES: Bilateral lower extremities normal, no edema, no phlabitus, pulse palpable, no contracture. MUSCULOSKELETAL: Spine Normal, Non-tender, Normal range of motion, No swelling, no deformity, no clubbing, or cyanosis, the patient has no edema to bilateral lower extremities, dorsalis pedis pulses palpable bilaterally. NEUROLOGIC: The patient is awake, alert, oriented, responding to yes/no questions appropriately, moving all extremities, cranial nerve intact, normal strenght, normal power, normal coordination, normal gait. Allergies Coded Allergies: No Known Allergy (Unverified , 10/13/17) PMH Hypertension/diabetes/atypical chest pain/PUD Social Hx No smoking no drinking, Family Hx Noncontributory Patient History: Cardiac disorder Assessment/Plan Impression Atypical chest pain/partially resolved PUD Hypertension Diabetes Plan Patient education done about about diseases, Patient encouraged to follow with the primary care physician and a cardiology on regular basis, Patient still has occasional heartburn, patient to take Protonix and Carafate, Patient blood pressure still significantly elevated, will start on hydralazine 25 mg p.o. 3 times daily #100 Patient on discharge paper was supposed to take lisinopril 10 mg daily, patient is already on the lisinopril 40 mg daily, so we will add another medication as mentioned above Patient advised to control the blood sugar control the blood pressure, risk of cardiac arrest and complication of diabetes and hypertension explained, Medications Home Meds Active Scripts Methocarbamol* (Methocarbamol*) 750 Mg Tablet, 1500 MG PO TID for 3 Days, #9 TAB Prov:ELIZABETH ROBLEDO 10/15/17 Pantoprazole* (Pantoprazole*) 40 Mg Tablet., 40 MG PO DAILY@06 for 30 Days, # 30 2 Refills Prov:ELIZABETH ROBLEDO 10/15/17 Sucralfate* (Carafate*) 1 Gm/10 Ml Susp, 1 GM PO QID for 30 Days, #1200 ML Prov:ELIZABETH ROBLEDO 10/15/17 Reported Medications Cholecalciferol (Vitamin D3) (Vitamin D3) 2,000 Unit Tab.chew, 2000 UNIT PO DAILY, TAB.CHEW 10/13/17 Metoprolol Tartrate* (Lopressor*) 50 Mg Tab, 50 MG PO BID, #60 TAB 10/13/17 Lisinopril* (Lisinopril*) 10 Mg Tablet, 10 MG PO DAILY, #30 TAB 01/31/17 Glipizide* (Glipizide*) 5 Mg Tablet, 5 MG PO BID, TAB 06/20/16 Gabapentin* (Gabapentin*) 100 Mg Capsule, 100 MG PO TID, #90 CAP 06/20/16 Discontinued Reported Medications Omeprazole* (Omeprazole*) 40 Mg Capsule., 40 MG PO DAILY, #30 CAP 06/20/16 SHELLIE DIAZ MD Oct 21, 2017 14:54
== END 2017-10-21 16:05 | disposition home or self-care (01) ==
LOC: DCC 14:10
PROVIDERS: ATTEND Internal Medicine
DX: R07.89 Other chest pain (principal); K27.9 Peptic ulcer, site unspecified, unspecified as acute or chronic, without hemorrhage or perforation; I10 Essential (primary) hypertension; E11.9 Type 2 diabetes mellitus without complications
CPT/HCPCS: G0463

== ENCOUNTER 2017-11-01 14:41 | Outpatient (CLI) | END 2017-11-01 16:18 | disposition home or self-care (01) ==

== ENCOUNTER 2017-11-12 11:16 | Outpatient (CLI) | END 2017-11-12 16:27 | disposition home or self-care (01) ==

== ENCOUNTER 2018-07-01 17:21 | Emergency (ER) | END 2018-07-01 23:49 | disposition home or self-care (01) ==

== ENCOUNTER 2018-08-19 08:44 | Emergency (ER) | END 2018-08-19 10:28 | disposition home or self-care (01) ==

== ENCOUNTER 2018-10-17 07:27 | Day surgery (SDC) | END 2018-10-17 11:29 | disposition home or self-care (01) ==

== ENCOUNTER 2018-11-21 15:22 | Emergency (ER) | payer OTHER ==
[~2018-11-21] VITALS: Wt 71.0 kg
[~2018-11-21 15:22] MED LIST changes: -CARAS PO; -GABA100C14 PO; -METH750T2 PO; -METO-429 PO; +OMEP20CA16 PO; -PANT40TA4 PO; +SIMVASTATIN
[2018-11-21 15:27] VITALS: BP 164/74; PULSE 89; RESP 18
[2018-11-21] MEDS ORDERED: ACETAMINOPHEN 325 MG TAB PO ONE (17:00)
[2018-11-21] MEDS ORDERED: IBUP-1542 PO (18:18)
[2018-11-21] MEDS ORDERED: TRAM50TA2 PO (18:18)
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
== END 2018-11-21 18:34 | disposition home or self-care (01) ==
LOC: FTE 15:22
DX: S20.211A Contusion of right front wall of thorax, initial encounter (principal); E11.9 Type 2 diabetes mellitus without complications; I10 Essential (primary) hypertension; V49.50XA Passenger injured in collision with unspecified motor vehicles in traffic accident, initial encounter; Z79.84 Long term (current) use of oral hypoglycemic drugs
CPT/HCPCS: 71045; 73060; 76705; 81003; Z7502; Z7610; 93005

== ENCOUNTER 2019-01-22 16:04 | Emergency (ER) | payer SELFPAY ==
[~2019-01-22] VITALS: Wt 64.5 kg
[~2019-01-22 16:04] MED LIST changes: +IBUP-1542 PO; +TRAM50TA2 PO
[2019-01-22 16:12] VITALS: BP 134/74; PULSE 74; RESP 18
== END 2019-01-22 20:02 | disposition left against medical advice (07) ==
LOC: FTE 16:04
DX: Z53.21 Procedure and treatment not carried out due to patient leaving prior to being seen by health care provider (principal)

== ENCOUNTER 2019-02-28 12:15 | Emergency (ER) | payer OTHER ==
[~2019-02-28] VITALS: Ht 162.6 cm; Wt 64.7 kg
[2019-02-28 12:20] VITALS: Ht 162.6 cm; Wt 64.7 kg
[2019-02-28] MEDS ORDERED: ACETAMINOPHEN 500 MG TAB PO STA (13:12)
[2019-02-28] MEDS ORDERED: traMADol 50 MG TAB PO ONE (13:30)
[2019-02-28] MEDS ORDERED: DIAZEPAM 5 MG TAB PO ONE (13:30)
[2019-02-28 15:11] VITALS: BP 153/86; PULSE 71; RESP 18
[2019-02-28] MEDS ORDERED: ACET500C5 PO (15:20)
[2019-02-28] MEDS ORDERED: CYCL5TAB PO (15:20)
[2019-02-28] MEDS ORDERED: TRAM50TA2 PO (15:21)
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
== END 2019-02-28 15:33 | disposition home or self-care (01) ==
LOC: FTE 12:15
DX: S20.221A Contusion of right back wall of thorax, initial encounter (principal); I10 Essential (primary) hypertension; M62.838 Other muscle spasm; S49.91XA Unspecified injury of right shoulder and upper arm, initial encounter; E11.9 Type 2 diabetes mellitus without complications; V89.2XXA Person injured in unspecified motor-vehicle accident, traffic, initial encounter; Y92.9 Unspecified place or not applicable; Z79.84 Long term (current) use of oral hypoglycemic drugs
CPT/HCPCS: 72072; 73010; 81025; 82962; Z7502; Z7610

== ENCOUNTER 2019-03-06 11:25 | Emergency (ER) | payer OTHER ==
[~2019-03-06] VITALS: Wt 61.5 kg
[~2019-03-06 11:25] MED LIST changes: +ACET500C5 PO; +CYCL5TAB PO
[2019-03-06] MEDS ORDERED: KETOROLAC 15 MG INJ IV STA (12:06)
[2019-03-06] MEDS ORDERED: ONDANSETRON 4 MG INJ IV STA (13:11)
[2019-03-06] MEDS ORDERED: morphine 4 MG/ML VIAL IV STA (13:11)
[2019-03-06] MEDS ORDERED: ONDANSETRON (ODT) 4 MG TAB ODT STA (13:18)
[2019-03-06] MEDS ORDERED: morphine 4 MG/ML VIAL IM STA (13:18)
--- NOTE | 2019-03-06 13:22 | ERD ---
ER Documentation Chief Complaint Chief Complaint bilateral flank pain for the past 4 days. dysuria but no hematuria no vomit HPI This is a 48-year-old female presents for evaluation of dysuria, and bilateral flank pain for the last 4 days. She has not had a fever, she had an admission in 2016 for pyelonephritis, review of records showed that she had a CT abdomen pelvis, with no acute renal findings, no renal scarring, otherwise she states that she has had some shoulder pain, that she was seen here for recently. ROS All systems reviewed and are negative except as per history of present illness. Medications Home Meds Reported Medications Cholecalciferol (Vitamin D3) (Vitamin D3) 2,000 Unit Tab.chew, 2000 UNIT PO DAILY, TAB.CHEW 10/13/17 Lisinopril* (Lisinopril*) 10 Mg Tablet, 10 MG PO DAILY, #30 TAB 01/31/17 Glipizide* (Glipizide*) 5 Mg Tablet, 5 MG PO BID, TAB 06/20/16 Discontinued Reported Medications [Simvastatin] No Conflict Check 10/17/18 Discontinued Scripts Tramadol HCl (Tramadol HCl) 50 Mg Tablet, 25 MG PO Q12 for MODERATE-SEVERE PAIN, #6 TAB Prov:MARIFER FRIEDMAN NP 02/28/19 Acetaminophen* (Tylophen*) 500 Mg Capsule, 2 CAP PO Q8H PRN for PAIN AND OR ELEVATED TEMP, #20 CAP Prov:MARIFER FRIEDMAN V INFECTIOUS DISEASES PHYSICIAN 02/28/19 Cyclobenzaprine Hcl* (Cyclobenzaprine Hcl*) 5 Mg Tablet, 5 MG PO Q12 PRN for NECK MUSCLE SPASM, #60 TAB Prov:MARIFER FRIEDMAN V INFECTIOUS DISEASES PHYSICIAN 02/28/19 Tramadol HCl (Tramadol HCl) 50 Mg Tablet, 50 MG PO Q4 PRN for PAIN, #14 TAB Prov:GILLIAN TREJO MD 11/21/18 Ibuprofen* (Motrin*) 600 Mg Tab, 600 MG PO Q6, #20 TAB Prov:GILLIAN TREJO MD 11/21/18 Omeprazole* (Omeprazole*) 20 Mg Capsule.dr, 20 MG PO DAILY, #14 Prov:JORGE ADAMS PA-C 07/01/18 Allergies Allergies: Coded Allergies: No Known Allergy (Unverified , 03/06/19) PMhx/Soc History of Surgery: Yes (ANGIOGRAM) Anesthesia Reaction: No Hx Neurological Disorder: No Hx Respiratory Disorders: No Hx Cardiac Disorders: Yes (HTN) Hx Psychiatric Problems: No Hx Miscellaneous Medical Probl: Yes (DM, "KIDNEY PROBLEMS") Hx Alcohol Use: No Hx Substance Use: No Hx Tobacco Use: No Smoking Status: Never smoker Physical Exam Vitals Vital Signs Date Temp Pulse Resp B/P (MAP) Pulse Ox O2 O2 Flow FiO2 Time Delivery Rate 03/06/19 99.2 78 16 151/89 99 Room Air 12:10 (109) 03/06/19 99.2 88 16 158/91 98 11:26 (113) Physical Exam Const: No acute distress Head: Atraumatic Eyes: Normal Conjunctiva ENT: Normal External Ears, Nose and Mouth. Neck: Full range of motion. No meningismus. Resp: Clear to auscultation bilaterally Cardio: Regular rate and rhythm, no murmurs Abd: Soft, non tender, non distended, no rebound or guarding, no McBurney's point tenderness, negative Fermin sign. Normal bowel sounds Skin: No petechiae or rashes Back: No midline. There is bilateral paraspinal tenderness Ext: No cyanosis, or edema Neur: Awake and alert Psych: Normal Mood and Affect Result Diagram: 03/06/19 1222 03/06/19 1222 Results 24 hrs Laboratory Tests Test 03/06/19 12:22 White Blood Count 9.1 10^3/ul Red Blood Count 4.84 10^6/ul Hemoglobin 12.6 g/dl Hematocrit 40.0 % Mean Corpuscular Volume 82.6 fl Mean Corpuscular Hemoglobin 26.0 pg Mean Corpuscular Hemoglobin Concent 31.5 g/dl Red Cell Distribution Width 14.0 % Platelet Count 394 10^3/UL Mean Platelet Volume 11.5 fl Immature Granulocytes % 0.200 % Neutrophils % 71.0 % Lymphocytes % 22.9 % Monocytes % 4.4 % Eosinophils % 1.1 % Basophils % 0.4 % Nucleated Red Blood Cells % 0.0 /100WBC Immature Granulocytes # 0.020 10^3/ul Neutrophils # 6.4 10^3/ul Lymphocytes # 2.1 10^3/ul Monocytes # 0.4 10^3/ul Eosinophils # 0.1 10^3/ul Basophils # 0.0 10^3/ul Nucleated Red Blood Cells # 0.0 10^3/ul Urine Color COLORLESS Urine Clarity CLEAR Urine pH 6.0 Urine Specific [place] 1.002 Urine Ketones NEGATIVE mg/dL Urine Nitrite NEGATIVE mg/dL Urine Bilirubin NEGATIVE mg/dL Urine Urobilinogen NEGATIVE mg/dL Urine Leukocyte Esterase NEGATIVE Shireen/ul Urine Hemoglobin NEGATIVE mg/dL Urine Glucose NEGATIVE mg/dL Urine Total Protein NEGATIVE mg/dl Sodium Level 140 mmol/L Potassium Level 4.6 mmol/L Chloride Level 105 mmol/L Carbon Dioxide Level 24 mmol/L Anion Gap 11 Blood Urea Nitrogen 15 mg/dl Creatinine 0.67 mg/dl Est Glomerular Filtrat Rate mL/min > 60 mL/min Glucose Level 172 mg/dl Calcium Level 9.5 mg/dl Total Bilirubin 0.4 mg/dl Direct Bilirubin 0.00 mg/dl Indirect Bilirubin 0.4 mg/dl Aspartate Amino Transf (AST/SGOT) 33 IU/L Alanine Aminotransferase (ALT/SGPT) 23 IU/L Alkaline Phosphatase 55 IU/L Total Protein 8.0 g/dl Albumin 4.4 g/dl Globulin 3.60 g/dl Albumin/Globulin Ratio 1.22 Lipase 159 U/L Serum HCG, Qualitative NEGATIVE Current Medications Medications Dose Sig/Di Start Time Status Last (Trade) Ordered Route PRN Stop Time Admin Dose Reason Admin Ketorolac 15 mg ONCE STAT 03/06/19 DC 03/06/19 Tromethamine IV 12:06 12:36 (Toradol) 03/06/19 12:09 Morphine 4 mg ONCE STAT 03/06/19 UNV Sulfate IV 13:11 (morphine) 03/06/19 13:12 Ondansetron 4 mg ONCE STAT 03/06/19 UNV HCl (Zofran IV 13:11 Inj) 03/06/19 13:12 Procedures/MDM This is a 48-year-old female, who presents for evaluation of dysuria and back pain. Her flank pain clinically seems to be more musculoskeletal in nature, she has no peritoneal signs, no neurovascular deficits, and she is otherwise afebrile and nontoxic-appearing. Given clinical findings, I this time, I do not suspect a surgical abdomen, she is given pain control and analgesia in the ED. Her lab work was unremarkable, with no evidence of leukocytosis, and normal renal function. Renal ultrasound showed no acute findings. She does have dysuria, despite a negative UA, her symptoms would be clinically indicative of a UTI. However I do not suspect that she has pyelonephritis, thus I will treat he r for cystitis for 5 days with Keflex. Urine culture will also be sent. At discharge the patient was in no distress. Departure Diagnosis: Primary Impression: Flank pain Additional Impression: Dysuria Condition: Stable ELIZABETH TOURE MD Mar 06, 2019 13:21
[2019-03-06] MEDS ORDERED: PHEN-537 PO (13:26)
[2019-03-06] MEDS ORDERED: CEPH-443 PO (13:26)
[2019-03-06 14:22] VITALS: BP 141/93; PULSE 69; RESP 18
== END 2019-03-06 14:25 | disposition home or self-care (01) ==
LOC: E/R 11:25
DX: R10.9 Unspecified abdominal pain (principal); I10 Essential (primary) hypertension; E11.9 Type 2 diabetes mellitus without complications; R30.0 Dysuria
CPT/HCPCS: 36415; 76775; 80053; 81003; 83690; 84703; 85025; 87086; 93005; 96374; 96375; J1885; J2270; Z7502; Z7610

== ENCOUNTER 2019-07-04 12:41 | Emergency (ER) | payer OTHER ==
[~2019-07-04] VITALS: Ht 152.4 cm; Wt 78.0 kg
[~2019-07-04 12:41] MED LIST changes: -ACET500C5 PO; +CEPH-443 PO; +CYCL10TA7 PO; -CYCL5TAB PO; -IBUP-1542 PO; -OMEP20CA16 PO; +PHEN-537 PO; -SIMVASTATIN; -TRAM50TA2 PO
[2019-07-04 12:50] VITALS: BP 135/77; PULSE 73; RESP 18; Ht 152.4 cm; Wt 78.0 kg
[2019-07-04] MEDS ORDERED: KETOROLAC 30 MG INJ IM STA (14:17)
[2019-07-04] MEDS ORDERED: DEXAMETHASONE 10 MG/ML 1 ML INJ IM ONE (14:30)
== END 2019-07-04 15:07 | disposition home or self-care (01) ==
LOC: FTE 12:41
DX: J02.9 Acute pharyngitis, unspecified (principal); I10 Essential (primary) hypertension; M25.511 Pain in right shoulder; Z79.84 Long term (current) use of oral hypoglycemic drugs
CPT/HCPCS: 81025; 82962; 87880; 96372; J1100; J1885; Z7502